=== PATIENT | female | born 1955 | race African-American/Black ===

== ENCOUNTER 2024-07-31 10:07 | Emergency (ER) | payer MEDICAID ==
[~2024-07-31] VITALS: Ht 172.7 cm; Wt 59.0 kg
[~2024-07-31 10:07] MED LIST: AMLO10TA80 PO; ATOR20TA65 PO
[2024-07-31 10:09] VITALS: O2SAT 98
[2024-07-31 12:25] LABS: BASOPHILS % 0.7 % (0.0-2.0); EOSINOPHILS % 2.3 % (0.0-5.0); HEMATOCRIT. 37.3 % (36.0-48.0); HEMOGLOBIN. 12.1 g/dL (12.0-16.0); LYMPHOCYTES % 29.1 % (20.0-50.0); MEAN CORPUSCULAR HEMOGLOBIN 26.1 pg (28.0-32.0); MEAN CORPUSCULAR HGB CONC 32.4 g/dL (31.0-37.0); MEAN CORPUSCULAR VOLUME 80.5 fL (81.0-99.0); MEAN PLATELET VOLUME 8.6 fl (7.4-10.4); MONOCYTES % 8.4 % (2.0-8.0); NEUTROPHILS % 59.5 % (40.0-76.0); PLATELET 247 x1000/uL (130-400); RED BLOOD CELL COUNT 4.63 mill/uL (4.2-5.4); RED CELL DISTRIBUTION WIDTH 15.5 % (11.6-14.6); WHITE BLOOD COUNT 3.8 x1000/uL (4.5-11.0)
[2024-07-31 12:31] LABS: CHLORIDE 111 mEq/L (98-107); POTASSIUM 4.3 mEq/L (3.5-5.1); SODIUM 143 mEq/L (136-145)
[2024-07-31 12:32] LABS: CALCIUM 9.4 mg/dL (8.7-10.4); CARBON DIOXIDE 25 mEq/L (21-32)
[2024-07-31 12:37] LABS: CREATININE 0.8 mg/dL (0.6-1.0); GLUCOSE 97 mg/dL (70-105); UREA NITROGEN BLOOD 13 mg/dL (9-23)
[2024-07-31 12:39] LABS: CREATINE KINASE 167 IU/L (34-145)
[2024-07-31 13:15] VITALS: BP 154/78; PULSE 63; RESP 16; TEMP 36.8; O2SAT 97
[2024-07-31 13:27] VITALS: TEMP 98.2
[2024-07-31] MEDS: ACETAMINOPHEN 325MG TABLET PO ONE (13:27)
== END 2024-07-31 14:19 | disposition home or self-care (01) ==
LOC: ER 10:07
DX: M54.9 Dorsalgia, unspecified (principal); E78.00 Pure hypercholesterolemia, unspecified; I10 Essential (primary) hypertension; Z86.73 Personal history of transient ischemic attack (TIA), and cerebral infarction without residual deficits; W01.0XXA Fall on same level from slipping, tripping and stumbling without subsequent striking against object, initial encounter; Y93.89 Activity, other specified; Y92.89 Other specified places as the place of occurrence of the external cause; Y99.8 Other external cause status
CPT/HCPCS: 36415; 71045; 72170; 80048; 82550; 85025; 99284